=== PATIENT | female | born 1960 | race Caucasian/White ===

== ENCOUNTER 2016-05-25 08:45 | Day surgery (SDC) | payer BC ==
[~2016-05-25 08:45] MED LIST: Buffered Lidocaine 1% SYR 3ML* 3 ML/SYR SYRINGE INTRADERM ONE
[2016-05-25] MEDS ORDERED: Lidocaine 1% INJ* 10 MG/ML 30 ML SDV ONE (08:47)
[2016-05-25] MEDS ORDERED: Clindamycin 900 MG IVPREMIX(* 900 MG/50 ML SDV IV ONE (08:57)
[2016-05-25] MEDS ORDERED: fentaNYL* 50 MCG/ML 2 ML VIAL (100 MCG VIAL) ONE (10:08)
[2016-05-25] MEDS ORDERED: Midazolam* 1 MG/ML 5 ML VIAL (5 MG) ONE (10:08)
[2016-05-25] MEDS ORDERED: Propofol* 10 MG/ML 20 ML BTL IV PUSH ONE (11:00)
[2016-05-25] MEDS ORDERED: Lidocaine 2% PF * 5 ML VIAL ONE (11:00)
--- NOTE | 2016-05-25 11:41 | SURGPN ---
Brief Operative Note - Surgery Procedures: Procedures OPERATIVE REPORT PRE-OP: Malignant neoplasm of brain POST-OP: Same PROCEDURE: insertion of 8F Powerport via right cephalic vein cut-down SURGEON: MD Joleen ANESTHESIA:Local with MAC Dr. Mitchell ASST: none IVF: min EBL: min SPECIMEN:none DRAIN: none WOUND CLASS: One COMPLICATIONS: none TO PACU
[2016-05-25] MEDS ORDERED: oxyCODONE/Acetamin 5/325 MG* TAB PO PRN (11:42)
[2016-05-25] MEDS ORDERED: oxyCODONE/Acetamin 5/325 MG* TAB ONE (12:29)
--- NOTE | 2016-05-25 12:38 | RAD ---
HISTORY: Status post port placement COMPARISONS: November 15, 2014 VIEWS:1: Single frontal portable view of the chest at 12:02 PM FINDINGS: LINES AND TUBES: A right-sided chest port is noted with its tip overlying the cavoatrial junction. CARDIOMEDIASTINAL SILHOUETTE: The cardiomediastinal silhouette is normal for portable technique. PLEURA: The costophrenic angles are sharp. No pleural abnormalities are noted. LUNG PARENCHYMA: The lungs are clear. ABDOMEN: The upper abdomen is clear. There is no subphrenic gas. BONES AND SOFT TISSUES: No bone or soft tissue abnormalities are noted. IMPRESSION: LINES AND TUBES ABOVE. NO ACTIVE CARDIOPULMONARY DISEASE.
[2016-05-25 13:22] VITALS: BP 100/59
--- NOTE | 2016-05-25 13:44 | RAD ---
INDICATION: RIGHT chest PowerPort placement. COMPARISON: None. TECHNIQUE: 82.6 seconds fluoroscopy. FINDINGS: Spot image documents a RIGHT-sided chest port with the tip at level of the superior vena cava directed central. IMPRESSION: Procedural fluoroscopy. CPT II Codes: 6045F
--- NOTE | 2016-05-26 02:56 | OP ---
DATE OF OPERATION: 05/25/16 - [facility] DATE OF : 64 SURGEON: Jerardo Goodrich MD HEAT TREAT PULLER: None. ANESTHESIOLOGIST: Dr. Mitchell. ANESTHESIA: Local with monitored anesthesia care. PRE-OP DIAGNOSIS: Malignant neoplasm of the brain. POST-OP DIAGNOSIS: Malignant neoplasm of the brain. OPERATIVE PROCEDURE: Insertion of a right chest wall 8-[place] PowerPort via a right cephalic vein cut down. ESTIMATED BLOOD LOSS: Minimal. WOUND CLASSIFICATION: I. SPECIMEN: None. DRAINS: None. COMPLICATIONS: None. DESCRIPTION OF PROCEDURE: Written and informed consent was obtained. The right chest was marked with indelible ink. Preoperative antibiotics were administered. The patient was taken to the operating room, placed in the supine position. Sequential compression devices and a warming blanket were applied. The right and left chest and neck were prepped and draped in the usual sterile fashion. Time-out verification was completed. Next, 0.25% Marcaine mixed with 1% lidocaine was infiltrated in oblique area overlying the right deltopectoral groove. An oblique incision was made, carried down to the subcutaneous tissue and the deltopectoral groove was identified by the fatty demarcation and a suitable right cephalic vein was identified and dissected free for a length of about 2 cm. It was encircled proximally and distally with 3-0 silk ties. Next, a venotomy was placed in the previously flushed port catheter was inserted without difficulty, confirmed to be in the superior vena cava and right atrium on fluoroscopy. Next, additional Marcaine was infiltrated and a subcutaneous pocket was made inferior and medial to my initial oblique incision, large enough to fit the port. The port was flushed as well. The catheter was pulled back slightly to the junction of the right atrium and superior vena cava, cut to the appropriate length and attached to the port which was then placed into the pocket and sutured in two places to the underlying fascia with interrupted 2-0 Prolene suture. Catheter was then tested and it flushed well, withdrew blood without difficulty and subsequently was flushed with heparin solution. Hemostasis was assured. The wound was closed in layers of 3-0 and 4-0 Polysorb sutures. Sterile dressings were applied. The patient tolerated the procedure well, was taken to the recovery room in stable condition. Postprocedural chest x-ray showed the catheter to be in good position without evidence of pneumothorax. [id number]/[facility] #: [id number] [facility]
== END 2016-05-25 13:21 | disposition home or self-care (01) ==
LOC: OR 08:45
PROVIDERS: ATTEND Surgery
DX: C71.2 Malignant neoplasm of temporal lobe (principal); E03.9 Hypothyroidism, unspecified
CPT/HCPCS: 71010; A9270-GY; C1788; J1642; J2250; J2704; J3010